=== PATIENT | male | born 1950 | race Caucasian/White ===

== ENCOUNTER 2023-08-09 09:37 | Day surgery (SDC) | payer MEDICARE ==
[2023-08-08 11:19] LABS: BASOPHILS % (AUTO) 0.5 % (0-1); EOSINOPHILS # (AUTO) 0.1 X10'3 (0-0.9); EOSINOPHILS % (AUTO) 1.4 % (0-6); HEMATOCRIT 43.3 % (42.0-52.0); HEMOGLOBIN 14.7 g/dl (14.0-17.9); LYMPHOCYTES # (AUTO) 1.4 X10'3 (1.1-4.8); LYMPHOCYTES % (AUTO) 15.2 % (21-51); MEAN CORPUSCULAR HEMOGLOBIN 30.3 PG (27.0-31.0); MEAN CORPUSCULAR VOLUME 89.3 FL (78-98); MEAN PLATELET VOLUME 8.3 FL (7.4-10.4); MONOCYTES # (AUTO) 0.5 X10'3 (0-0.9); NEUTROPHILS % (AUTO) 76.9 % (42-75); PLATELET COUNT 284 X10'3 (140-440); RED BLOOD COUNT 4.85 X10'6 (4.70-6.10); RED CELL DISTRIBUTION WIDTH 13.4 % (11.5-14.5); WHITE BLOOD COUNT 9.1 X10'3 (4.5-11.0)
[2023-08-08 11:29] LABS: ANION GAP 10 (8-16); BLOOD UREA NITROGEN 12 MG/DL (7-18); BUN/CREATININE RATIO 10.7 (10.0-20.0); CHLORIDE 108 MMOL/L (99-107); CREATININE 1.12 MG/DL (0.60-1.10); GLUCOSE 105 MG/DL (70-104); POTASSIUM 4.3 MMOL/L (3.5-5.1); SODIUM 143 MMOL/L (135-145); TOTAL CARBON DIOXIDE 24.7 MMOL/L (24-32)
[2023-08-08 11:30] LABS: ALBUMIN 3.8 G/DL (3.4-5.0); CALCIUM 9.1 MG/DL (8.5-10.1); eGFR 64 ML/MIN
[2023-08-08 11:33] LABS: APTT 27 SECONDS (22-32); INR 1.1 INR; PROTHROMBIN TIME 11.8 SECONDS (9.0-12.0)
[~2023-08-09] VITALS: Ht 180.3 cm; Wt 96.4 kg
[2023-08-09] VITALS (15 sets, daily range): BP systolic 112–155; BP diastolic 55–87; PULSE 47–80; RESP 10–25; TEMP 98.2; O2SAT 93–96
[2023-08-09] MEDS ORDERED: FENO160T PO (10:44)
[2023-08-09] MEDS ORDERED: ROSU40TA22 PO (10:44)
[2023-08-09] MEDS ORDERED: ASPI-500 PO (10:44)
[2023-08-09] MEDS ORDERED: AMLO5TAB16 PO (10:44)
[2023-08-09] MEDS ORDERED: MULT-1141 PO (10:44)
[2023-08-09] MEDS ORDERED: LOSA100T58 PO (10:44)
[2023-08-09] MEDS ORDERED: UBID50TA3 PO (10:44)
[2023-08-09] MEDS: normal saline 1,000 ML IV SCH (10:51)
[2023-08-09] MEDS: LORazepam 0.5 MG tablet PO PRN (10:52)
[2023-08-09] MEDS: diphenhydrAMINE 25mg capsule PO PRN (10:52)
[2023-08-09] MEDS ORDERED: verapamil 2.5 mg/ml inj IV ONE (11:11)
[2023-08-09] MEDS ORDERED: LIDOcaine 1% (10mg/ml) 2ml vial ONE ×2 (11:11→11:13)
[2023-08-09] MEDS ORDERED: nitroGLYCERIN 500mcg/5mL D5W 5 ML IV ONE ×2 (11:12→13:04)
[2023-08-09] MEDS ORDERED: iohexol 350MG/ML 100ml bottle IV ONE ×4 (11:12→13:04)
[2023-08-09] MEDS ORDERED: heparin 1,000unit/ml 10ml vial 10 ML ONE (11:12)
[2023-08-09] MEDS ORDERED: iohexol 350 MG/ML 50ML vial IV ONE (11:12)
[2023-08-09] MEDS ORDERED: midazolam 1 mg/ML 2ml injection ONE (11:12)
[2023-08-09] MEDS ORDERED: fentaNYL/PF 50MCG/1 ML 2ML syringe ONE (11:12)
[2023-08-09] MEDS ORDERED: heparin 25,000 UNIT/250ml bag 250 ML IV ONE (12:24)
[2023-08-09] MEDS ORDERED: heparin 1,000 UNITS/NS 500ml 500 ML ONE (12:39)
[2023-08-09] MEDS ORDERED: clopidogrel 300mg tablet ONE (13:12)
[2023-08-09 13:22] LABS: ISTAT HGB ART 12.6 g/dl (14.0-17.9); ISTAT Hct ART 37 %PCV (42-52); ISTAT O2 SATURATION ARTERIAL 93 % (95-98); ISTAT SOURCE ART
[2023-08-09] MEDS ORDERED: HYDROcodone/acetaminophen 10/325mg tab PO PRN (14:00)
[2023-08-09] MEDS ORDERED: HYDROcodone/acetaminophen 5mg/325mg tablet PO PRN (14:00)
[2023-08-09] MEDS: normal saline 1000ml 1,000 ML IV SCH (15:04)
[2023-08-12 06:35] LABS: ISTAT HGB MIX 12.6 g/dl (14.0-17.9); ISTAT Hct MIX 37 %PCV (42-52); ISTAT O2 SATURATION MIX VENOUS 61 % (60-80); ISTAT SOURCE OTHER
== END 2023-08-09 18:00 | disposition home or self-care (01) ==
LOC: SSTAY O 09:37
PROVIDERS: ATTEND Internal Medicine Cardiovascular Disease
DX: R94.39 Abnormal result of other cardiovascular function study (principal); I25.10 Atherosclerotic heart disease of native coronary artery without angina pectoris; I10 Essential (primary) hypertension; E78.5 Hyperlipidemia, unspecified; I48.0 Paroxysmal atrial fibrillation; G47.9 Sleep disorder, unspecified; I08.0 Rheumatic disorders of both mitral and aortic valves; I73.9 Peripheral vascular disease, unspecified; I65.29 Occlusion and stenosis of unspecified carotid artery; Z79.899 Other long term (current) drug therapy; F17.210 Nicotine dependence, cigarettes, uncomplicated; Z88.7 Allergy status to serum and vaccine
CPT/HCPCS: 36415; 76937; 80048; 82803; 85014; 85025; 85347; 85610; 85730; 92920; 92921; 93005; 93460; 99152; 99153; A6258; C1874; J1644; J2250; J3010; J3490; J7030; Q0163; Q9967; A6402; C1725; C1751; C1769; C1894

== ENCOUNTER 2024-03-03 10:39 | Day surgery (SDC) | payer MEDICARE ==
[2024-03-03] VITALS (14 sets, daily range): BP systolic 118–143; BP diastolic 70–92; PULSE 64–78; RESP 14–22; TEMP 98.9; O2SAT 97–99
[~2024-03-03] VITALS: Ht 177.8 cm; Wt 90.9 kg
[~2024-03-03 10:39] MED LIST: AMLO5TAB16 PO; APIX5TAB3 PO; ASPI-500 PO; BUDE0.5A11 IH; DAPA10TA PO; FENO160T PO; IPRA3AMP31 NEB; LOSA100T58 PO; ROSU40TA71 PO; SPIR25TA5 PO
[2024-03-03 11:21] LABS: BASOPHILS % (AUTO) 0.7 % (0-1); EOSINOPHILS # (AUTO) 0.1 X10'3 (0-0.9); EOSINOPHILS % (AUTO) 1.5 % (0-6); HEMOGLOBIN 14.6 g/dl (14.0-17.9); LYMPHOCYTES # (AUTO) 1.1 X10'3 (1.1-4.8); LYMPHOCYTES % (AUTO) 16.5 % (21-51); MEAN CORPUSCULAR HEMOGLOBIN 28.8 PG (27.0-31.0); MEAN CORPUSCULAR HGB CONC 33.2 g/dL (33.0-36.5); MEAN CORPUSCULAR VOLUME 86.7 FL (78-98); MEAN PLATELET VOLUME 8.5 FL (7.4-10.4); MONOCYTES # (AUTO) 0.4 X10'3 (0-0.9); MONOCYTES % (AUTO) 6.3 % (2-12); NEUTROPHILS # (AUTO) 5.2 X10'3 (1.8-7.7); PLATELET COUNT 270 X10'3 (140-440); RED BLOOD COUNT 5.07 X10'6 (4.70-6.10); RED CELL DISTRIBUTION WIDTH 16.4 % (11.5-14.5); WHITE BLOOD COUNT 6.9 X10'3 (4.5-11.0)
[2024-03-03 11:33] LABS: ALBUMIN 3.9 G/DL (3.4-5.0); ANION GAP 9 (8-16); APTT 27 SECONDS (22-32); BLOOD UREA NITROGEN 16 MG/DL (7-18); BUN/CREATININE RATIO 13.9 (10.0-20.0); CALCIUM 9.6 MG/DL (8.5-10.1); CHLORIDE 106 MMOL/L (99-107); CREATININE 1.15 MG/DL (0.60-1.10); GLUCOSE 100 MG/DL (70-104); INR 1.1 INR; POTASSIUM 4.3 MMOL/L (3.5-5.1); PROTHROMBIN TIME 11.9 SECONDS (9.0-12.0); SODIUM 141 MMOL/L (135-145); TOTAL CARBON DIOXIDE 25.8 MMOL/L (24-32); eCRCL 59 ML/MIN; eGFR 62 ML/MIN
[2024-03-03] MEDS: MIDAZolam 1mg/ml 10ml vial IV ONE (13:27)
[2024-03-03] MEDS: fentaNYL/PF 50MCG/1 ML 2ML syringe IV ONE (13:27)
[2024-03-03] MEDS: normal saline 1000ml 1,000 ML IV SCH (13:28)
== END 2024-03-03 14:35 | disposition home or self-care (01) ==
LOC: SSTAY O 10:39
PROVIDERS: ATTEND Student in an Organized Health Care Education/Training Program
DX: I48.91 Unspecified atrial fibrillation (principal); I25.10 Atherosclerotic heart disease of native coronary artery without angina pectoris; I10 Essential (primary) hypertension; E78.5 Hyperlipidemia, unspecified; J44.9 Chronic obstructive pulmonary disease, unspecified; I42.9 Cardiomyopathy, unspecified; F17.290 Nicotine dependence, other tobacco product, uncomplicated; Z86.73 Personal history of transient ischemic attack (TIA), and cerebral infarction without residual deficits; Z79.01 Long term (current) use of anticoagulants; Z79.82 Long term (current) use of aspirin; Z79.899 Other long term (current) drug therapy
CPT/HCPCS: 36415; 80048; 85025; 85610; 85730; 93325; 94760; A4620; C8925; J2250; J3010; J7030; 93312